=== PATIENT | female | born 1985 | race Two or more races ===

== ENCOUNTER 2017-07-27 22:29 | Emergency (ER) | payer BC ==
[~2017-07-27] VITALS: Ht 144.8 cm; Wt 79.8 kg
[2017-07-27 22:47] VITALS: BP 130/84
[2017-07-28] MEDS ORDERED: CYCL10TA2 PO (00:04)
[2017-07-28] MEDS ORDERED: IBUP-1007 PO (00:04)
--- NOTE | 2017-07-28 00:04 | PHYS DOC ---
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 Patient denies any other symptomatology. Patient has any fevers shakes chills nausea vomiting diarrhea cough cold runny nose. Patient reports pain increases with deep inspiration and with palpation. Patient reports pain increases when she is at work. Patient has any history of DVT or PE in the past. Patient is a smoker. Patient is not on any control pills. Patient has a dysuria frequency urgency. Patient denies any other symptomatology. Review of systems: Constitutional: Denies fever or chills Eyes: Denies change in visual acuity, redness, or eye pain HENT: Denies nasal congestion or sore throat All other systems were reviewed and found to be within normal limits, except as documented in this note. Physical exam Constitutional: Well developed, well nourished, no acute distress, non-toxic appearance. HENT: Normocephalic, atraumatic, bilateral external ears normal, oropharynx moist, no oral exudates, nose normal. Eyes: PERRLA, EOMI, conjunctiva normal, no discharge. Neck: Normal range of motion, no tenderness, supple, no stridor. Cardiovascular:Heart rate regular rhythm, Lungs & Thorax: Bilateral breath sounds clear to auscultation Abdomen: Nondistended. Skin: Warm, dry, no erythema, no rash. Back: No tenderness, no CVA tenderness. Extremities: No tenderness, no cyanosis, no clubbing, ROM intact, no edema. Neurologic: Alert and oriented X 3, normal motor function, normal sensory function, no focal deficits noted. Psychologic: Affect normal, judgement normal, mood normal. ER physical exam is significant for: Chest x-ray unremarkable. Normal heart no infiltrates or effusions. EKG reveals normal sinus rhythm with nonspecific ST-T wave abnormalities. No evidence of ST elevation TX on the EKG. Assessment and plan: 1. Mechanical chest wall pain. She is clinically hemodynamically stable. Patient 's presentation is not consistent with PE, dissection, TX. Patient be discharged home with NSAIDs and Flagyl. Patient's most likely secondary to repetitive motion at [employer]. Allergies Allergies Allergies Coded Allergies Type Severity Reaction Last Updated Verified No Known Drug Allergies 11/22/14 No Current Patient Data Vital Signs Vital Signs Date Time Temp Pulse Resp B/P (MAP) Pulse Ox O2 Delivery O2 Flow Rate FiO2 07/27/17 22:47 98.4 79 130/84 (99) 98 Room Air 98.4 07/27/17 22:39 18 Lab Values Laboratory Tests Test 07/27/17 23:04 POC Urine HCG, Qualitative Hcg negative (Negative) EKG EKG [] Radiology/Procedures Radiology/Procedures [] Course & Med Decision Making Course & Med Decision Making Pertinent Labs and Imaging studies reviewed. (See chart for details) [] Dragon Disclaimer Dragon Disclaimer This electronic medical record was generated, in whole or in part, using a voice recognition dictation system. Departure Departure Impression: Primary Impression: Chest wall pain Disposition: 01 HOME, SELF-CARE Condition: IMPROVED Referrals: NO PCP (PCP) Patient Instructions: Chest Wall Pain Scripts Ibuprofen (IBUPROFEN) 600 Mg Tablet 600 MG PO PRN Q6HRS Y for PAIN, #20 TAB Prov: BYRON JEFFERSON MD 07/28/17 Cyclobenzaprine Hcl (CYCLOBENZAPRINE HCL) 10 Mg Tablet 10 MG PO TID Y for MUSCLE PAIN, #20 TAB Prov: BYRON JEFFERSON MD 07/28/17 BYRON JEFFERSON MD Jul 28, 2017 00:04
[2017-07-28] MEDS ORDERED: KETOROLAC 30 MG/ML INJ. ONE (00:07)
[2017-07-28] MEDS ORDERED: KETOROLAC 30 MG/ML INJ. IM ONE (00:30)
--- NOTE | 2017-07-28 03:15 | EKG ---
[facility] [address] [place] [address] Test Date: 2017-07-27 Test Time: 22:38:42 Pat Name: ALVARADO VALDEZ Department: Room: Gender: F Electronics Research Engineer: : 1985 Requested By: BYRON JEFFERSON Order Number: [id number] Reading MD: Measurements Intervals Garber Rate: 87 P: 38 HI: 138 QRS: 67 QRSD: 82 T: 23 QT: 354 QTc: 427 Interpretive Statements SINUS RHYTHM QRS(T) CONTOUR ABNORMALITY CONSIDER ANTEROLATERAL MYOCARDIAL DAMAGE CONSIDER INFERIOR MYOCARDIAL DAMAGE POSSIBLY ABNORMAL ECG RI6.01 No previous ECG available for comparison
--- NOTE | 2017-07-28 10:17 | RAD ---
PA AND LATERAL CHEST RADIOGRAPH Clinical Indication: Chest pain x1 week Comparison: Two-view chest 01/02/2015. Findings: The cardiomediastinal silhouette is normal. Pulmonary vasculature is normal. The lungs are clear. No pleural effusion or pneumothorax is seen. There is no acute bone abnormality. IMPRESSION: No acute cardiopulmonary process.
== END 2017-07-28 00:49 | disposition home or self-care (01) ==
LOC: ER 22:29
DX: R07.89 Other chest pain (principal); I10 Essential (primary) hypertension
CPT/HCPCS: 71020; 81025; 93005; 96372; 99284; J1885

== ENCOUNTER 2020-12-23 19:10 | Emergency (ER) | payer SELFPAY ==
[~2020-12-23] VITALS: Ht 144.8 cm; Wt 86.3 kg
[~2020-12-23 19:10] MED LIST: CYCL10TA2 PO; IBUP-1007 PO
[2020-12-23 19:40] VITALS: BP 148/92
[2020-12-23] MEDS ORDERED: NAPR-683 PO (20:15)
[2020-12-23] MEDS ORDERED: CLIN150C15 PO (20:15)
--- NOTE | 2020-12-23 20:15 | ED.ADGEN ---
Past Medical History Past Medical History: No Pertinent History, Hypertension Past Surgical History: Smoking Status: Heavy Tobacco Smoker Alcohol Use: None Drug Use: None General Adult EDM: Chief Complaint: FOOT INJURY PAIN HPI: HPI: Patient is a 35 year old female who presents emergency department with complaints of redness, pain, and swelling in her right foot for the last 2 or 3 days. She states that the redness and swelling began in her fifth toe. She itched the area and since her right foot has also become red and swollen. She denies any drainage or bleeding. She denies any concerns of a bug bite, she denies itching, she is not sure why she was scratching at the area. Patient currently rates the pain 8 out of 10 on the pain scale describes it as acute pain. She reports the pain increases to a 10 out of 10 when it is touched or she on her extremity. She denies any fever, cough, nausea, vomiting, or abdominal. Patient denies any history of diabetes. Review of Systems: Review of Systems: Complete ROS is negative unless otherwise noted in HPI. Allergies: Allergies: Allergies Coded Allergies Type Severity Reaction Last Updated Verified No Known Drug Allergies 11/22/14 No Physical Exam: PE: See Above Constitutional: Well developed, well nourished, no acute distress, non-toxic cara earance. [] HENT: Normocephalic, atraumatic, bilateral external ears normal, nose normal. [] Eyes: PERRLA, EOMI, conjunctiva normal, no discharge. [] Neck: Normal range of motion, no stridor. [] Cardiovascular:Heart rate regular rhythm Lungs & Thorax: Respirations even and unlabored, no retractions, no respiratory distress Skin: Warm, dry; erythema, warmth, 1+ needed to fifth digit of right foot extending over the metatarsals and midfoot, concerning for cellulitis, no purulent drainage, no visible punctum Extremities: Right foot: No bony tenderness or deformity, no cyanosis, ROM intact Neurologic: Alert and oriented X 3, normal motor, normal sensory, no focal deficits noted. [] Psychologic: Affect normal, judgement normal, mood normal. [] Current Patient Data: Vital Signs: Vital Signs Date Time Temp Pulse Resp B/P (MAP) Pulse Ox O2 Delivery O2 Flow Rate FiO2 12/23/20 19:40 98.5 114 20 148/92 (110) 99 Room Air 98.5 EKG: EKG: [] Heart Score: C/O Chest Pain: No Risk Scores: Score 0 - 3: 2.5% MACE over next 6 weeks - Discharge Home Score 4 - 6: 20.3% MACE over next 6 weeks - Admit for Clinical Observation Score 7 - 10: 72.7% MACE over next 6 weeks - Early Invasive Strategies Radiology/Procedures: Radiology/Procedures: [] Course & Med Decision Making: Course & Med Decision Making Pertinent Labs and Imaging studies reviewed. (See chart for details) []Did no personally evaluate the patient. Treatment and care plan was independently made by KAREY. I was available for consult. Torsion Mobile Disclaimer: Torsion Mobile Disclaimer: This electronic medical record was generated, in whole or in part, using a voice recognition dictation system. Departure Departure Impression: Primary Impression: Cellulitis of right foot Disposition: HOME / SELF CARE / HOMELESS Condition: STABLE Referrals: NO PCP (PCP) Patient Instructions: Cellulitis, [id number] Additional Instructions: Fill the prescriptions and use them as directed. Recommend elevation, application of ice or heat as needed for comfort, follow-up with your primary care doctor for reevaluation 1 to 2 days, return to the ER if symptoms worsen or fever develops. Scripts Naproxen (NAPROSYN) 500 Mg Tablet 500 MG PO BID for 10 Days, #20 TAB 0 Refills Prov: KENNY MENDEZ TRAILHEAD MAINTENANCE WORKER 12/23/20 Clindamycin Hcl (CLINDAMYCIN HCL) 150 Mg Capsule 300 MG PO QID for 7 Days, #56 CAP 0 Refills Prov: KENNY MENDEZ TRAILHEAD MAINTENANCE WORKER 12/23/20 KENNY MENDEZ TRAILHEAD MAINTENANCE WORKER December 23, 2020 20:15 CORNELIA CARDENAS I DO December 25, 2020 18:13
== END 2020-12-23 20:23 | disposition home or self-care (01) ==
LOC: ER 19:10
DX: L03.115 Cellulitis of right lower limb (principal); I10 Essential (primary) hypertension; F17.290 Nicotine dependence, other tobacco product, uncomplicated
CPT/HCPCS: 99283

== ENCOUNTER 2021-04-13 15:37 | Emergency (ER) | payer BC ==
[~2021-04-13] VITALS: Ht 144.8 cm; Wt 84.1 kg
[~2021-04-13 15:37] MED LIST changes: +CLIN150C16 PO; +NAPR-683 PO
[2021-04-13 17:24] VITALS: BP 153/99
--- NOTE | 2021-04-13 18:13 | RAD ---
XR FOOT_RIGHT 3 VIEWS History: Reason: something fell on it pain and redness / Spl. Instructions: / History: Technique: 3 views right foot Comparison: None. Findings: Normal alignment. No acute fracture. Dorsal foot soft tissue swelling. Plantar calcaneal spur. Impression: 1. No acute osseous abnormality. 2. Dorsal foot soft tissue swelling. Electronically signed by: Carlos Grider DO (04/13/2021 6:10 PM) [facility]
--- NOTE | 2021-04-13 18:42 | PHYS DOC ---
Past Medical History Past Medical History: No Pertinent History, Hypertension (MÓNICA NAVARRO SILVER MINER) Past Surgical History: (MÓNICA NAVARRO SILVER MINER) Smoking Status: Heavy Tobacco Smoker Alcohol Use: None Drug Use: None (MÓNICA NAVARRO SILVER MINER) General Adult EDM: Chief Complaint: FOOT INJURY PAIN HPI: HPI: Patient is a 35 year old female who presents the ED today complaining of 10 out of 10 right foot pain, symptoms began on Saturday after a shelf fell on her right foot while cleaning. Patient describes the pain as throbbing and intermittent worse on weightbearing. She states she took Tylenol with no relief this morning. (MÓNICA NAVARRO SILVER MINER) Review of Systems: Review of Systems: Constitutional: Denies fever or chills. [] Musculoskeletal: Reports right foot pain Neurologic: Denies headache, focal weakness or sensory changes. [] Psychiatric: Denies depression or anxiety. [] (MÓNICA NAVARRO SILVER MINER) Heart Score: C/O Chest Pain: N/A Risk Factors: Risk Factors: DM, Current or recent (<one month) smoker, HTN, HLP, family history of CAD, obesity. Risk Scores: Score 0 - 3: 2.5% MACE over next 6 weeks - Discharge Home Score 4 - 6: 20.3% MACE over next 6 weeks - Admit for Clinical Observation Score 7 - 10: 72.7% MACE over next 6 weeks - Early Invasive Strategies (MÓNICA NAVARRO SILVER MINER) Allergies: Allergies: Allergies Coded Allergies Type Severity Reaction Last Updated Verified No Known Drug Allergies 11/22/14 No (MÓNICA NAVARRO SILVER MINER) Physical Exam: PE: Constitutional: Well developed, well nourished, no acute distress, non-toxic appearance. [] Back: No tenderness, no CVA tenderness. [] Extremities: Right foot with no obvious deformity, dorsal pain ventral aspect of the right foot with moderate soft tissue swelling and bruising. Tenderness on palpation diffusely on the top of the right foot worse on the distal end of the metatarsals. Full range of motion to the right foot and toes. No navicular bone tenderness, no tenderness of the base of the fifth metatarsal. +2 right pedal pulse. Cap refill less than 2 seconds to right toes. Sensation intact to the right foot. Neurologic: Alert and oriented X 3, normal motor function, normal sensory function, no focal deficits noted. [] Psychologic: Affect normal, judgement normal, mood normal. [] (MÓNICA NAVARRO APRN) Current Patient Data: Vital Signs: Vital Signs Date Time Temp Pulse Resp B/P (MAP) Pulse Ox O2 Delivery O2 Flow Rate FiO2 04/13/21 17:24 98.5 76 16 153/99 (117) 98 Room Air 98.5 (MÓNICA NAVARRO APRN) EKG: EKG: [] (MÓNICA NAVARRO APRN) Radiology/Procedures: Radiology/Procedures: PROCEDURE: FOOT RIGHT 3V XR FOOT_RIGHT 3 VIEWS History: Reason: something fell on it pain and redness / Spl. Instructions: / History: Technique: 3 views right foot Comparison: None. Findings: Normal alignment. No acute fracture. Dorsal foot soft tissue swelling. Plantar calcaneal spur. Impression: 1. No acute osseous abnormality. 2. Dorsal foot soft tissue swelling. Electronically signed by: Carlos Grider DO (04/13/2021 6:10 PM) [facility] DICTATED and SIGNED BY: CARLOS GRIDER DO DATE: 04/13/21 [id number] (MÓNICA NAVARRO APRN) Course & Med Decision Making: Course & Med Decision Making Pertinent Labs and Imaging studies reviewed. (See chart for details) This is a 35-year-old female patient presented to the ED today with right foot pain, symptoms began on Saturday after a shelf fell on her foot. Right foot x- rays interpreted by radiologist were negative for any acute findings, noted for soft tissue swelling. Luan bandage applied to the right foot by me. Patient provided an ice pack. Neurovascular exam done by me post Luan bandage application is normal. Ice elevation encouraged. Follow-up with orthopedic doctor in 1 week if pain persist. (MÓNICA NAVARRO APRN) Course & Med Decision Making I have reviewed and was available for consultation in the emergency department for this patient that was seen by midlevel provider. Agree with plan. Onel Kaur DO (ONEL KAUR DO) Jessy Disclaimer: Jessy Disclaimer: This electronic medical record was generated, in whole or in part, using a voice recognition dictation system. (MUTUNGA,MÓNICA M SILVER MINER) Departure Departure Impression: Primary Impression: Contusion of right foot Qualified Codes: S90.31XA - Contusion of right foot, initial encounter Disposition: HOME / SELF CARE / HOMELESS Condition: STABLE Referrals: NO PCP (PCP) KATI BARBER Jr. DO follow up in one week Patient Instructions: Contusion, [id number] Additional Instructions: You were evaluated in the emergency room for right foot pain, your right foot xray are negative for any acute fingdings. Try to ice and elevate the ext remity. Please take [id number] pain relievers especially anti- inflammatories as needed for pain. Wear the Luan bandage provided as tolerated. Follow-up with the provided orthopedic doctor in 1 week if pain persist MÓNICA NAVARRO APRN Apr 13, 2021 18:42 ONEL KAUR DO Apr 13, 2021 22:56
== END 2021-04-13 18:45 | disposition home or self-care (01) ==
LOC: ER 15:37
DX: S90.31XA Contusion of right foot, initial encounter (principal); I10 Essential (primary) hypertension; Z72.0 Tobacco use; W20.8XXA Other cause of strike by thrown, projected or falling object, initial encounter; Y93.89 Activity, other specified; Y92.89 Other specified places as the place of occurrence of the external cause; Y99.8 Other external cause status
CPT/HCPCS: 73630; 99283

== ENCOUNTER 2021-04-16 05:05 | Emergency (ER) | payer BC ==
[~2021-04-16] VITALS: Ht 144.8 cm; Wt 84.0 kg
[2021-04-16 06:17] VITALS: BP 168/98
[2021-04-16] MEDS ORDERED: LIDOCAINE 1%/EPI 1:100,000 20 ML VIAL. ONE (06:18)
[2021-04-16] MEDS ORDERED: DOXY100C3 PO ×2 (06:27→06:36)
--- NOTE | 2021-04-16 06:29 | PHYS DOC ---
Past Medical History Past Medical History: No Pertinent History, Hypertension Additional Past Medical Histor: FOOT FUNGUL INFECTIONS. Past Surgical History: Smoking Status: Current Every Day Smoker Alcohol Use: None Drug Use: None General Adult EDM: Chief Complaint: LOWER EXT PAIN HPI: HPI: Patient is a 35 year old female who presents with right foot pain and swelling. States that on Saturday of last week she dropped a table leg on her foot and had some soft tissue swelling. Was seen in the emergency department and had an x-ray of the foot that did not show any bony injury. Her pain had been improving, until the last 2-3 days when she started having redness and swelling. Denies any fevers or chills. Denies nausea/vomiting, diarrhea, or other systemic illness. She has been able to walk on the foot gingerly. Review of Systems: Review of Systems: Constitutional: Denies fever or chills. [] Eyes: Denies change in visual acuity. [] HENT: Denies nasal congestion or sore throat. [] Respiratory: Denies cough or shortness of breath. [] Cardiovascular: Denies chest pain or edema. [] GI: Denies abdominal pain, nausea, vomiting, bloody stools or diarrhea. [] : Denies dysuria. [] Musculoskeletal: Right foot pain and swelling. Denies back pain or joint pain. [] Integument: Denies rash. [] Neurologic: Denies headache, focal weakness or sensory changes. [] Endocrine: Denies polyuria or polydipsia. [] Lymphatic: Denies swollen glands. [] Psychiatric: Denies depression or anxiety. [] Heart Score: C/O Chest Pain: N/A Risk Factors: Risk Factors: DM, Current or recent (<one month) smoker, HTN, HLP, family history of CAD, obesity. Risk Scores: Score 0 - 3: 2.5% MACE over next 6 weeks - Discharge Home Score 4 - 6: 20.3% MACE over next 6 weeks - Admit for Clinical Observation Score 7 - 10: 72.7% MACE over next 6 weeks - Early Invasive Strategies Current Medications: Current Medications Medications (Trade) Dose Ordered Sig/Sydnie Start Time Stop Time Status Last Admin Dose Admin Lidocaine/ Epinephrine (LIDOCAINE 1%-EPI 1:100,000 Multi-Dose) 20 ml STK-MED ONCE 04/16/21 06:18 04/16/21 06:18 DC Allergies: Allergies: Allergies Coded Allergies Type Severity Reaction Last Updated Verified No Known Drug Allergies 11/22/14 No Physical Exam: PE: Constitutional: Well developed, well nourished, no acute distress, non-toxic appearance. [] HENT: Normocephalic, atraumatic, bilateral external ears normal, oropharynx moist, no oral exudates, nose normal. [] Eyes: PERRLA, EOMI, conjunctiva normal, no discharge. [] Neck: Normal range of motion, no tenderness, supple, no stridor. [] Cardiovascular:Heart rate regular rhythm, no murmur [] Lungs & Thorax: Bilateral breath sounds clear to auscultation [] Abdomen: Bowel sounds normal, soft, no tenderness, no masses, no pulsatile masses. [] Skin: Warm, dry, no erythema, no rash. [] Back: No tenderness, no CVA tenderness. [] Extremities: Right lower extremity with dorsal erythema, slightly tender to the touch. Just proximal to the first interwebspace there is a fluctuant area approximately 2 x 1 cm. [] Neurologic: Alert and oriented X 3, normal motor function, normal sensory function, no focal deficits noted. [] Psychologic: Affect normal, judgement normal, mood normal. [] Current Patient Data: Vital Signs: Vital Signs Date Time Temp Pulse Resp B/P (MAP) Pulse Ox O2 Delivery O2 Flow Rate FiO2 04/16/21 05:25 98.3 87 18 155/109 (124) 98 Room Air 98.3 EKG: EKG: [] Radiology/Procedures: Radiology/Procedures: [id number] ultrasound demonstrated a well-circumscribed fluid collection consistent with abscess in the dorsal foot just proximal to the wrist into web space. There is also soft tissue thickening and cobblestoning consistent with cellulitis. [] Impression: Indication: abscess Procedure: The patient was positioned appropriately. Local anesthesia was injected with 1% lidocaine with epinephrine. An incision was then made over the apex of the lesion and copious purulent material was expressed. The drainage cavity was probed, deloculated, expressed. The patient tolerated the procedure well. Complications: none. Course & Med Decision Making: Course & Med Decision Making Pertinent Labs and Imaging studies reviewed. (See chart for details) Patient is a 35-year-old female who presents with 2 to 3 days of right foot swelling, redness, and pain. She was seen for dropping a table on her foot earlier last week and had negative x-ray imaging. Do not feel x-ray imaging would be helpful today. Exam and [id number] ultrasound consistent with cellulitis and small abscess just proximal to the first interwebspace on the right foot on the dorsal side. Incision and drainage as above. Tdap up-to-date. We will prescribe doxycycline for surrounding cellulitis. Dragon Disclaimer: Dragmary Disclaimer: This electronic medical record was generated, in whole or in part, using a voice recognition dictation system. Departure Departure Impression: Primary Impression: Abscess Additional Impression: Cellulitis Disposition: 01 HOME / SELF CARE / HOMELESS Condition: STABLE Patient Instructions: Incision and Drainage, Care After Scripts Doxycycline Hyclate (DOXYCYCLINE HYCLATE) 100 Mg Capsule 1 CAP PO BID for 7 Days, #14 CAP Prov: FRANKIE HAQUE MD 04/16/21 Doxycycline Hyclate (DOXYCYCLINE HYCLATE) 100 Mg Capsule 1 CAP PO BID for 7 Days, #14 CAP Prov: FRANKIE HAQUE MD 04/16/21 FRANKIE HAQUE MD Apr 16, 2021 06:29
[2021-04-16] MEDS ORDERED: LIDOCAINE 1%/EPI 1:100,000 20 ML VIAL. INJ ONE (06:30)
== END 2021-04-16 06:40 | disposition home or self-care (01) ==
LOC: ER 05:05
DX: L03.115 Cellulitis of right lower limb (principal); I10 Essential (primary) hypertension; F17.200 Nicotine dependence, unspecified, uncomplicated
CPT/HCPCS: 10060; 99284